=== PATIENT | female | born 1995 | race African-American/Black ===

== ENCOUNTER 2020-11-27 08:30 | Emergency (ER) | payer MEDICAID, OTHER ==
[~2020-11-27] VITALS: Ht 152.4 cm; Wt 52.2 kg
[2020-11-27 08:31] VITALS: BP 124/57
--- NOTE | 2020-11-27 08:31 | NUR ---
PATIENT AMBULATED TO BED 11.
--- NOTE | 2020-11-27 09:13 | NUR ---
RECEIVED AMBULATORY TO BED 11 REPORTING VAG BLEED ONE WEEK AGO, WAS SEEN AT [facility], INSTRUCTED TO FOLLOW UP WITH PMD IN ONE WEEK, REPORTS TO ED TODAY SHE DOES NOT YET HAVE AN OB FOR HER CARE. REPORTS NO FURTHER VAG BLEED OTHER THAT LIGHT SPOTTING WITH CRAMPING YESTERDAY, NONE TODAY. AWAKE, ALERT, RESP EVEN AN UNLAB SPEAKING FULL SENTENCES, COLOR PINK SKIN WARM AND DRY. PATIENT REPORTS 2 TAB 1 PARA 0 LMP 10/14/20 EDC 07/21/21
--- NOTE | 2020-11-27 09:15 | NUR ---
22 G IV ESTABLISHED TO L AC. BLOOD SAMPLES COLLECTED VIA IV. SAMPLES WALKED TO LAB ALONG WITH URINE SAMPLE
--- NOTE | 2020-11-27 09:16 | NUR ---
US AT BEDSIDE
[2020-11-27 09:24] LABS: APPEARANCE,URINE CLEAR (CLEAR); BILIRUBIN,URINE NEGATIVE (NEGATIVE); BLOOD, URINE NEGATIVE (NEGATIVE); COLOR,URINE YELLOW (YELLOW); LEUKOCYTE ESTERASE ,URINE NEGATIVE (NEGATIVE); NITRITE, URINE NEGATIVE (NEGATIVE); UGLUCOSE NEGATIVE (NEGATIVE)
[2020-11-27 09:32] LABS: BASOPHILS % (AUTO) 0.6 % (0.0-2.0); EOSINOPHILS # (AUTO) 0.2 K/uL (0-0.4); EOSINOPHILS % (AUTO) 3.1 % (0.0-4.0); HEMATOCRIT 39.1 % (36-48); LYMPHOCYTES # (AUTO) 1.8 K/uL (2.5-16.5); MEAN CORPUSCULAR HEMOGLOBIN 31 pg (27-31); MEAN CORPUSCULAR HGB CONC 33 g/dL (33-37); MONOCYTES # (AUTO) 0.5 K/uL (0.8-1.0); MONOCYTES % (AUTO) 8.5 % (1.7-9.3); NEUTROPHILS # (AUTO) 2.9 K/uL (1.8-7.7); NEUTROPHILS % (AUTO) 54.8 % (42.2-75.2); PLATELET COUNT (AUTO) 242 K/uL (140-450); RED BLOOD CELL COUNT(AUTO) 4.21 MIL/uL (4.20-5.40); RED CELL DISTRIBUTION WIDTH 12.9 % (11.6-13.7); WHITE BLOOD COUNT (AUTO) 5.4 K/uL (4.8-10.8)
[2020-11-27 09:34] LABS: RBC,URINE 0-5 /HPF (0-5); WBC,URINE 0-5 /HPF (0-5)
--- NOTE | 2020-11-27 10:09 | NUR ---
PT LAYING IN BED WITH EVEN AND UNLABORED RESPIRATIONS. WILL CONTINUE TO MONITOR
--- NOTE | 2020-11-27 11:02 | NUR ---
Patient discharged with v/s stable. Written and verbal after care instructions given and explained. Patient verbalized understanding. Ambulatory with steady gait. All questions addressed prior to discharge. Advised to follow up with PMD.
[2020-11-27 11:05] VITALS: BP 124/57
== END 2020-11-27 11:02 | disposition home or self-care (01) ==
LOC: MED 08:30
DX: O02.0 Blighted ovum and nonhydatidiform mole (principal); Z3A.01 Less than 8 weeks gestation of pregnancy
CPT/HCPCS: 36415; 76817; 81001; 81025; 84702; 85025; 86900; 86901; 99284

== ENCOUNTER 2021-05-11 18:07 | Emergency (ER) | payer MEDICAID, OTHER ==
[~2021-05-11] VITALS: Ht 152.4 cm; Wt 68.9 kg
[2021-05-11 18:07] VITALS: BP 125/51
--- NOTE | 2021-05-11 18:13 | NUR ---
pt ambulated to bed 06 at this time
--- NOTE | 2021-05-11 18:18 | NUR ---
PT WALKED TO THE BATHROOM FOR URINE SAMPLE.
[2021-05-11] MEDS ORDERED: ACETAMINOPHEN 325 MG TAB PO ONE (18:25)
[2021-05-11] MEDS ORDERED: NACL 0.9% 1,000 ML IV ONE (18:25)
--- NOTE | 2021-05-11 18:52 | NUR ---
DR LEA AT BEDSIDE DOING ULTRASOUND.
--- NOTE | 2021-05-11 18:56 | NUR ---
25 Y/O F C/O BODY ACHES, CHILLS, FEVER AND SHARP UNDER RIB PAIN SINCE THIS MORNING. PT STATED FIMICKI HAS THE SAME SYMPTOMS. NP ANAA
[2021-05-11 18:59] LABS: APPEARANCE,URINE CLEAR (CLEAR); BILIRUBIN,URINE NEGATIVE (NEGATIVE); BLOOD, URINE NEGATIVE (NEGATIVE); COLOR,URINE YELLOW (YELLOW); LEUKOCYTE ESTERASE ,URINE NEGATIVE (NEGATIVE); NITRITE, URINE NEGATIVE (NEGATIVE); UGLUCOSE NEGATIVE (NEGATIVE)
--- NOTE | 2021-05-11 19:23 | NUR ---
GAVE REPORT TO BOB FOSS.
[2021-05-11 19:31] LABS: ALBUMIN 2.7 g/dL (3.4-5.0); ANION GAP 13.3 (8-16); CREATININE 0.5 mg/dL (0.6-1.3); POTASSIUM 3.3 mmol/L (3.5-5.1); TOTAL BILIRUBIN 0.1 mg/dL (0.0-1.0)
[2021-05-11 19:32] LABS: BASOPHILS % (AUTO) 0.2 % (0.0-2.0); EOSINOPHILS % (AUTO) 0.1 % (0.0-4.0); HEMATOCRIT 27.3 % (36-48); HEMOGLOBIN 9.3 g/dL (12.0-16.0); LYMPHOCYTES # (AUTO) 0.5 K/uL (2.5-16.5); LYMPHOCYTES % (AUTO) 9.7 % (20.5-51.1); MEAN CORPUSCULAR HEMOGLOBIN 31 pg (27-31); MEAN CORPUSCULAR HGB CONC 34 g/dL (33-37); MEAN CORPUSCULAR VOLUME 91.5 fL (80-94); MONOCYTES # (AUTO) 0.7 K/uL (0.8-1.0); NEUTROPHILS # (AUTO) 3.9 K/uL (1.8-7.7); PLATELET COUNT (AUTO) 194 K/uL (140-450); RED BLOOD CELL COUNT(AUTO) 2.98 MIL/uL (4.20-5.40); RED CELL DISTRIBUTION WIDTH 13.9 % (11.6-13.7); WHITE BLOOD COUNT (AUTO) 5.1 K/uL (4.8-10.8)
[2021-05-11] MEDS ORDERED: POTASSIUM CHLORIDE 10 MEQ TABER PO ONE (20:05)
--- NOTE | 2021-05-11 20:39 | NUR ---
PATIENT CAME POSITIVE FOR COVID 19 EXPLAINED AND GAVE TEACHING TO THE PATIENT
--- NOTE | 2021-05-11 20:51 | NUR ---
ANA WOODRUFF [phone] CALLED REQUESTING UPDATE
[2021-05-11 21:37] VITALS: BP 110/62
--- NOTE | 2021-05-11 21:40 | NUR ---
patient alert oriented no complaining of pain stable all DC instution gave and explained teaching about Covid 19 Gave and explaine we reccommend to coming back to the hospital if the symtoms get worse or not improve along with be in quarentena at home //Pattie RN
--- NOTE | 2021-05-23 10:14 | NUR ---
LATE ENTRY- IV NORMAL SALINE 0.9 % DISCONTINUED AT 2136.
== END 2021-05-11 21:24 | disposition home or self-care (01) ==
LOC: MED 18:07
DX: O98.513 Other viral diseases complicating pregnancy, third trimester (principal); U07.1 COVID-19; Z3A.28 28 weeks gestation of pregnancy
CPT/HCPCS: 36415; 76705; 80053; 81003; 81025; 83605; 83690; 85025; 87040; 87086; 87426; 87804; 96360; 96361; 99284; J7030; Q0092

== ENCOUNTER 2021-07-11 11:28 | Observation (INO) | payer OTHER, SELFPAY ==
[~2021-07-11] VITALS: Ht 152.4 cm; Wt 72.6 kg
[2021-07-11 12:15] VITALS: BP 118/70
== END 2021-07-11 14:55 | disposition home or self-care (01) ==
LOC: EEVIPCON 11:28 → MLD 11:28
PROVIDERS: ADMIT Obstetrics & Gynecology; ATTEND Obstetrics & Gynecology
DX: O47.1 False labor at or after 37 completed weeks of gestation (principal); Z20.822 Contact with and (suspected) exposure to COVID-19; Z3A.37 37 weeks gestation of pregnancy
CPT/HCPCS: 59025; 76805; 81000; 87426; G0378; G0379; Q0092

== ENCOUNTER 2021-07-17 10:44 | Observation (INO) | payer OTHER, SELFPAY ==
[~2021-07-17] VITALS: Ht 152.4 cm; Wt 72.6 kg
[2021-07-17] MEDS ORDERED: FERR325E14 PO (11:02)
[2021-07-17] MEDS ORDERED: PNV1TABL5 PO (11:02)
== END 2021-07-17 14:50 | disposition home or self-care (01) ==
LOC: MLD 10:44
PROVIDERS: ADMIT Obstetrics & Gynecology; ATTEND Obstetrics & Gynecology
DX: O47.1 False labor at or after 37 completed weeks of gestation (principal); Z20.822 Contact with and (suspected) exposure to COVID-19; Z3A.38 38 weeks gestation of pregnancy
CPT/HCPCS: 76819; 87426; G0378; G0379; Q0092

== ENCOUNTER 2021-07-20 16:27 | Inpatient (IN) | payer OTHER, SELFPAY ==
[~2021-07-20] VITALS: Ht 152.4 cm; Wt 73.0 kg
[~2021-07-20 16:27] MED LIST: FERR325E14 PO; PNV1TABL5 PO
[2021-07-20] MEDS ORDERED: METHYLERGONOVINE 0.2 MG/ML AMP IM PRN (17:05)
[2021-07-20] MEDS ORDERED: NALBUPHINE 10 MG/ML AMP IVP PRN (17:05)
[2021-07-20] MEDS ORDERED: CARBOPROST 250 MCG/ML AMP IM PRN (17:05)
[2021-07-20] MEDS ORDERED: PROMETHAZINE 25 MG/ML VIAL IVP PRN (17:05)
[2021-07-20] MEDS ORDERED: MISOPROSTOL 25 MCG TAB VG ONE (17:05)
[2021-07-20] MEDS ORDERED: OXYTOCIN 10 UNITS/ML VIAL IM SCH (17:05)
[2021-07-20 18:01] LABS: BASOPHILS # (AUTO) 0.1 K/uL (0.00-0.22); BASOPHILS % (AUTO) 0.6 % (0.0-2.0); EOSINOPHILS % (AUTO) 0.5 % (0.0-4.0); HEMATOCRIT 32.2 % (36-48); HEMOGLOBIN 10.8 g/dL (12.0-16.0); LYMPHOCYTES # (AUTO) 2.3 K/uL (2.5-16.5); LYMPHOCYTES % (AUTO) 25.2 % (20.5-51.1); MEAN CORPUSCULAR HEMOGLOBIN 31 pg (27-31); MEAN CORPUSCULAR HGB CONC 34 g/dL (33-37); MEAN CORPUSCULAR VOLUME 91.7 fL (80-94); MONOCYTES # (AUTO) 0.9 K/uL (0.8-1.0); MONOCYTES % (AUTO) 10.2 % (1.7-9.3); NEUTROPHILS # (AUTO) 5.8 K/uL (1.8-7.7); NEUTROPHILS % (AUTO) 63.5 % (42.2-75.2); PLATELET COUNT (AUTO) 226 K/uL (140-450); RED BLOOD CELL COUNT(AUTO) 3.51 MIL/uL (4.20-5.40); RED CELL DISTRIBUTION WIDTH 14.4 % (11.6-13.7); WHITE BLOOD COUNT (AUTO) 9.2 K/uL (4.8-10.8)
[2021-07-20 18:07] LABS: ALBUMIN 2.8 g/dL (3.4-5.0); ANION GAP 14.7 (8-16); CARBON DIOXIDE 24.1 mmol/L (21-32); CREATININE 0.5 mg/dL (0.6-1.3); POTASSIUM 3.8 mmol/L (3.5-5.1); TOTAL BILIRUBIN 0.2 mg/dL (0.0-1.0)
[2021-07-20 18:11] VITALS: BP 101/65
[2021-07-20 18:15] LABS: APPEARANCE,URINE CLEAR (CLEAR); BILIRUBIN,URINE NEGATIVE (NEGATIVE); BLOOD, URINE NEGATIVE (NEGATIVE); COLOR,URINE YELLOW (YELLOW); LEUKOCYTE ESTERASE ,URINE NEGATIVE (NEGATIVE); NITRITE, URINE NEGATIVE (NEGATIVE); UGLUCOSE NEGATIVE (NEGATIVE)
[2021-07-20] MEDS ORDERED: MISOPROSTOL 25 MCG TAB ONE (18:34)
[2021-07-21] MEDS: LACTATED RINGERS 1,000 ML IV SCH ×3 (01:05→12:50)
[2021-07-21] MEDS ORDERED: OXYTOCIN 20 UNITS/LR PREMIX 1,000 ML IV ONE (07:07)
[2021-07-21] MEDS ORDERED: OXYTOCIN 20 UNITS in LACTATED RINGERS 1,000 ML IV SCH (07:10)
--- NOTE | 2021-07-21 11:33 | NUR ---
PATIENT HAS BEEN SCREENED AND CATEGORIZED LOW NUTRITION RISK. PATIENT WILL BE SEEN WITHIN 7 DAYS OF ADMISSION. 07/27/[address]
[2021-07-21] MEDS ORDERED: MISOPROSTOL 25 MCG TAB VG SCH ×2 (16:45→19:05)
[2021-07-22] MEDS ORDERED: ROPIVACAINE 0.2%/NS PREMIX 200 ML EPI ONE (04:09)
[2021-07-22] MEDS ORDERED: TERBUTALINE 1 MG/ML VIAL SUBQ ONE (11:54)
[2021-07-22] MEDS ORDERED: ceFAZolin 1,000 MG VIAL ONE (12:48)
[2021-07-22] MEDS ORDERED: SODIUM BICARBONATE 8.4% PFS 50 MEQ/50 ML SYR IVP ONE (12:53)
[2021-07-22] MEDS ORDERED: LIDOCAINE MPF 2% 100 MG/5 ML VIAL INJ ONE (12:53)
[2021-07-22] MEDS ORDERED: MIDAZOLAM 2 MG/2 ML VIAL ONE (13:44)
[2021-07-22] MEDS ORDERED: KETAMINE 500 MG/5 ML VIAL ONE (13:44)
[2021-07-22] MEDS ORDERED: MORPHINE PRES FREE 5 MG/10 ML AMP IV ONE (13:45)
[2021-07-22] MEDS ORDERED: TERBUTALINE 1 MG/ML VIAL SUBQ SCH (13:50)
[2021-07-22] MEDS ORDERED: OXYTOCIN 20 UNITS in LACTATED RINGERS 1,000 ML IV SCH ×2 (13:55→16:10)
[2021-07-22] MEDS ORDERED: NALOXONE 0.4 MG/ML VIAL IVP PRN (13:55)
[2021-07-22] MEDS ORDERED: KETOROLAC 30 MG/ML VIAL IVP PRN ×2 (13:55→16:10)
[2021-07-22] MEDS ORDERED: ONDANSETRON 4 MG/2 ML VIAL IVP PRN (13:55)
[2021-07-22] MEDS ORDERED: diphenhydrAMINE 50 MG/ML VIAL IVP PRN (13:55)
[2021-07-22] MEDS ORDERED: OXYTOCIN 20 UNITS/LR PREMIX 1,000 ML IV ONE ×2 (14:08→21:57)
[2021-07-22] MEDS ORDERED: BUPIVACAINE MPF 0.25% 10 ML VIAL INJ ONE ×2 (14:35→14:36)
[2021-07-22] MEDS ORDERED: HYDROmorphone PFS 2 MG/ML SYR ONE ×2 (16:02→18:08)
[2021-07-22] MEDS ORDERED: HYDROmorphone 1 MG/ML AMP IVP PRN ×2 (16:05→16:10)
[2021-07-22] MEDS ORDERED: MEASLES, MUMPS, AND RUBELLA 1 VIAL SQVAC ONE (16:10)
[2021-07-23] MEDS ORDERED: OXYTOCIN 20 UNITS/LR PREMIX 1,000 ML IV ONE (05:18)
[2021-07-23 08:59] LABS: BASOPHILS % (AUTO) 0.2 % (0.0-2.0); EOSINOPHILS % (AUTO) 0.3 % (0.0-4.0); HEMATOCRIT 21.3 % (36-48); HEMOGLOBIN 7.1 g/dL (12.0-16.0); LYMPHOCYTES # (AUTO) 2.4 K/uL (2.5-16.5); LYMPHOCYTES % (AUTO) 17.7 % (20.5-51.1); MEAN CORPUSCULAR HEMOGLOBIN 31 pg (27-31); MEAN CORPUSCULAR HGB CONC 33 g/dL (33-37); MEAN CORPUSCULAR VOLUME 93.1 fL (80-94); MONOCYTES # (AUTO) 1.1 K/uL (0.8-1.0); MONOCYTES % (AUTO) 8.2 % (1.7-9.3); NEUTROPHILS # (AUTO) 9.9 K/uL (1.8-7.7); NEUTROPHILS % (AUTO) 73.6 % (42.2-75.2); PLATELET COUNT (AUTO) 188 K/uL (140-450); RED BLOOD CELL COUNT(AUTO) 2.29 MIL/uL (4.20-5.40); RED CELL DISTRIBUTION WIDTH 14.9 % (11.6-13.7)
[2021-07-23 09:11] LABS: WHITE BLOOD COUNT (AUTO) 13.4 K/uL (4.8-10.8)
[2021-07-23] MEDS ORDERED: KETOROLAC 60 MG/2 ML VIAL IM ONE (10:10)
[2021-07-23] MEDS ORDERED: IBUPROFEN 600 MG TAB ONE (13:44)
[2021-07-23] MEDS ORDERED: FUROSEMIDE 20 MG/2 ML VIAL IVP SCH ×2 (15:16→21:01)
[2021-07-23] MEDS ORDERED: IBUPROFEN 600 MG TAB PO PRN (21:20)
[2021-07-23] MEDS ORDERED: ACETAMINOPHEN 325 MG TAB PO PRN (22:00)
[2021-07-24] MEDS: bisacodyL 5 MG TABEC PO SCH (08:48)
[2021-07-24] MEDS: DOCUSATE SODIUM 100 MG GELCAP PO SCH (08:48)
[2021-07-24] MEDS: SIMETHICONE 80 MG TAB.CHEW PO SCH ×2 (08:49→17:05)
[2021-07-24] MEDS ORDERED: IBUPROFEN 600 MG TAB PO PRN (09:00)
[2021-07-24] MEDS ORDERED: SODIUM PHOSPHATE 118 ML ENEM RC PRN (09:00)
[2021-07-24] MEDS: IBUPROFEN 600 MG TAB PO PRN ×2 (10:57→21:37)
[2021-07-25 08:17] LABS: BASOPHILS % (AUTO) 0.4 % (0.0-2.0); EOSINOPHILS # (AUTO) 0.2 K/uL (0-0.4); EOSINOPHILS % (AUTO) 2.2 % (0.0-4.0); HEMATOCRIT 30.1 % (36-48); HEMOGLOBIN 10.2 g/dL (12.0-16.0); LYMPHOCYTES # (AUTO) 2.7 K/uL (2.5-16.5); LYMPHOCYTES % (AUTO) 33.2 % (20.5-51.1); MEAN CORPUSCULAR HEMOGLOBIN 30 pg (27-31); MEAN CORPUSCULAR HGB CONC 34 g/dL (33-37); MEAN CORPUSCULAR VOLUME 89.7 fL (80-94); MONOCYTES # (AUTO) 0.6 K/uL (0.8-1.0); MONOCYTES % (AUTO) 7.2 % (1.7-9.3); NEUTROPHILS # (AUTO) 4.6 K/uL (1.8-7.7); PLATELET COUNT (AUTO) 225 K/uL (140-450); RED BLOOD CELL COUNT(AUTO) 3.36 MIL/uL (4.20-5.40); RED CELL DISTRIBUTION WIDTH 15.5 % (11.6-13.7); WHITE BLOOD COUNT (AUTO) 8.2 K/uL (4.8-10.8)
[2021-07-25] MEDS: DOCUSATE SODIUM 100 MG GELCAP PO SCH (10:13)
[2021-07-25] MEDS: SIMETHICONE 80 MG TAB.CHEW PO SCH (10:13)
[2021-07-25] MEDS: bisacodyL 5 MG TABEC PO SCH (10:14)
[2021-07-25] MEDS: IBUPROFEN 600 MG TAB PO PRN (16:40)
[2021-07-26] MEDS: IBUPROFEN 600 MG TAB PO PRN (02:06)
== END 2021-07-26 15:00 | disposition home or self-care (01) | DRG 540 ==
LOC: MLD 16:27 → MFCC 07-22 16:50
PROVIDERS: ADMIT Obstetrics & Gynecology; ATTEND Obstetrics & Gynecology
PROC: 3E0P7GC Introduction of Other Therapeutic Substance into Female Reproductive, Via Natural or Artificial Opening (ICD-10-PCS; 2021-07-21)
PROC: 10H07YZ Insertion of Other Device into Products of Conception, Via Natural or Artificial Opening (ICD-10-PCS; 2021-07-21)
PROC: 30233N1 Transfusion of Nonautologous Red Blood Cells into Peripheral Vein, Percutaneous Approach (ICD-10-PCS; 2021-07-23)
PROC: 10D00Z1 Extraction of Products of Conception, Low, Open Approach (ICD-10-PCS; principal; 2021-07-24)
DX: O32.4XX0 Maternal care for high head at term, not applicable or unspecified (principal); D25.9 Leiomyoma of uterus, unspecified; O34.13 Maternal care for benign tumor of corpus uteri, third trimester; Z20.822 Contact with and (suspected) exposure to COVID-19; O69.2XX0 Labor and delivery complicated by other cord entanglement, with compression, not applicable or unspecified; O76 Abnormality in fetal heart rate and rhythm complicating labor and delivery; Z37.0 Single live birth; Z3A.39 39 weeks gestation of pregnancy
CPT/HCPCS: 36415; 51702; 59200; 80053; 81003; 85025; 86592; 86886; 86900; 86901; 86920; 87086; J0690; J1170; J1885; J1940; J2001; J2210; J2250; J2300; J2550; J2590; J2795; J3105; J3490; J7060; J7120; P9016